=== PATIENT | male | born 1955 | race Two or more races ===

== ENCOUNTER 2020-03-25 15:46 | Observation (INO) | payer OTHER ==
[~2020-03-25] VITALS: Ht 172.7 cm; Wt 60.8 kg
[~2020-03-25 15:46] MED LIST: ATROPINE SULFATE 1 MG/ML VIAL ONE; FENTANYL CITRATE/PF 100MCG/2 ML INJ ONE; KETOROLAC TROMETHAMINE 30 MG/ML VIAL ONE; LIDOCAINE HCL 2% LOCAL INJ 5 ML SDV VIAL INJ ONE; MIDAZOLAM HCL 2 MG/2 ML VIAL ONE; NEOSTIGMINE 1 MG/ML 10ML VIAL ONE; ONDANSETRON HCL INJ 2MG/ML 2ML 2 MG/ML VIAL ONE; PROPOFOL IV EMULSION 10 MG/ML 20 ML VIAL ONE; ROCURONIUM BROMIDE 10 MG/ML 5ML VIAL IV ONE; SEVOFLURANE INHAL SOLN 250 ML PEN BTL ONE; SUCCINYLCHOLINE CHLORIDE 20 MG/ML 10ML VIAL ONE
[2020-03-25] MEDS ORDERED: SODIUM CHLORIDE 0.9% 1000ML 1,000 ML IV STA (16:21)
[2020-03-25] MEDS ORDERED: VANCOMYCIN 1GM/NS 250 ML 250 ML IV STA (16:21)
[2020-03-25] MEDS ORDERED: MORPHINE SULFATE INJ 4 MG/ML INJ 1ML IV PRN (16:30)
[2020-03-25] MEDS ORDERED: ONDANSETRON HCL INJ 2MG/ML 2ML 2 MG/ML VIAL IV PRN (16:30)
--- NOTE | 2020-03-25 16:36 | Emergency Department Note ---
History of Present Illnes History of Present Illness Chief Complaint: Eye, Ear, Nose, Throat, Dental History of Present Illness This is a 64 year old male arrived to the ED with complaints of nasal abscess. Patient was told to come to emergency department by Dr. Renteria to have it drained intraoperatively.. Chief Complaint Comment Patient in from home with complaints of a large abscess to his nose. Patient states that he saw Dr. Chang outpatient and was told to come here to the ER to be seen prior to having surgery with Dr. Chang to drain the abscess. Patient states that he was trimming his nose hair about 6 days ago and may have injured his nose and caused the infection. Objectively the patient's nose is red, warm and very tender to touch with swelling throughout but most obvious at the distal tip of the nose. Socially the patient denies smoking and drinking. Chief Complaint Comment Patient in from home with complaints of a large abscess to his nose. Patient states that he saw Dr. Chang outpatient and was told to come here to the ER to be seen prior to having surgery with Dr. Chang to drain the abscess. Patient states that he was trimming his nose hair about 6 days ago and may have injured his nose and caused the infection. Objectively the patient's nose is red, warm and very tender to touch with swelling throughout but most obvious at the distal tip of the nose. Socially the patient denies smoking and drinking. Historian: Patient Arrival Mode: Car Onset (how long ago): day(s) Radiation: Reports non-radiation Severity: mild Timing of current episode: constant Progression: worsening Chronicity: new Past Medical/Family History Physician Review I have reviewed the patient's past medical and family history. Any updates have been documented here. Past Medical History Recent Fever: No Clinical Suspicion of Infectio: Yes New/Unexplained Change in Ment: No Past Medical History: Diabetes, Hyperlipedemia Past Surgical History: None Social History Smoking Cessation: Never Smoker Counseling Performed: No Alcohol Use: None Any Illegal Drug Use: No Other Any Pre-Existing Lines (PICC,: No Review of Systems Review of Systems Constitutional: Reports no symptoms EENTM: Reports as per HPI Cardiovascular: Reports no symptoms Respiratory: Reports no symptoms Gastrointestinal: Reports no symptoms Genitourinary: Reports no symptoms Musculoskeletal: Reports no symptoms Integumentary: Reports no symptoms Neurological: Reports no symptoms Psychological: Reports no symptoms Endocrine: Reports no symptoms Hematological/Lymphatic: Reports no symptoms Physical Exam Related Data Allergies: Coded Allergies: No Known Allergies (Unverified , 03/25/20) Triage Vital Signs Vital Signs Date Time Temp Pulse Resp B/P (MAP) Pulse Ox O2 Delivery O2 Flow Rate FiO2 03/25/20 15:55 97.7 84 15 156/72 100 Room Air Vital signs reviewed: Yes Physical Exam CONSTITUTIONAL Constitutional: Present well-developed, Present well-nourished HENT HENT: Present normocephalic, Present atraumatic, Present oropharynx clear/moist, Present nose normal HENT L/R: Present left ext ear normal, Present right ext ear normal EYES Eyes: Reports PERRL, Reports conjunctivae normal NECK Neck: Present ROM normal PULMONARY Pulmonary: Present effort normal, Present breath sounds normal CARDIOVASCULAR Cardiovascular: Present regular rhythm, Present heart sounds normal, Present capillary refill normal, Present normal rate GASTROINTESTINAL Abdominal: Present soft, Present nontender, Present bowel sounds normal GENITOURINARY Genitourinary: Present exam deferred SKIN Skin: Present warm, Present dry MUSCULOSKELETAL Musculoskeletal: Present ROM normal NEUROLOGICAL Neurological: Present alert, Present oriented x 3, Present no gross motor or sensory deficits PSYCHOLOGICAL Psychological: Present mood/affect normal, Present judgement normal Results Laboratory Lab results reviewed: Yes Laboratory comments Laboratory Tests Test 03/25/20 16:50 White Blood Count 11.51 x10e3/uL (4.8-10.8) Red Blood Count 4.54 x10e6/uL (4.3-5.7) Hemoglobin 12.9 g/dL (14.0-18.0) Hematocrit 40.3 % (38.2-49.6) Mean Corpuscular Volume 88.8 fL (81-99) Mean Corpuscular Hemoglobin 28.4 pg (28-32) Mean Corpuscular Hemoglobin Concent 32.0 g/dL (31-35) Red Cell Distribution Width 13.1 % (11.7-14.4) Platelet Count 267 x10e3/uL (140-360) Neutrophils (%) (Auto) 81.9 % (38.7-80.0) Lymphocytes (%) (Auto) 10.3 % (18.0-39.1) Monocytes (%) (Auto) 6.7 % (4.4-11.3) Eosinophils (%) (Auto) 0.4 % (0.0-6.0) Basophils (%) (Auto) 0.3 % (0.0-1.0) Neutrophils # (Auto) 9.4 (2.1-6.9) Lymphocytes # (Auto) 1.2 (1.0-3.2) Monocytes # (Auto) 0.8 (0.2-0.8) Eosinophils # (Auto) 0.1 (0.0-0.4) Basophils # (Auto) 0.0 (0.0-0.1) Absolute Immature Granulocyte (auto 0.05 x10e3/uL (0-0.1) Prothrombin Time 14.0 seconds (11.9-14.5) Prothromb Time International Ratio 1.03 Sodium Level 142 mmol/L (136-145) Potassium Level 4.1 mmol/L (3.5-5.1) Chloride Level 103 mmol/L (98-107) Carbon Dioxide Level 28 mmol/L (22-29) Anion Gap 15.1 mmol/L (8-16) Blood Urea Nitrogen 25 mg/dL (7-26) Creatinine 0.74 mg/dL (0.72-1.25) Estimat Glomerular Filtration Rate > 60 ML/MIN (60-) BUN/Creatinine Ratio 34 (6-25) Glucose Level 111 mg/dL (74-118) Calcium Level 9.9 mg/dL (8.4-10.2) Total Bilirubin 0.5 mg/dL (0.2-1.2) Aspartate Amino Transf (AST/SGOT) 28 IU/L (5-34) Alanine Aminotransferase (ALT/SGPT) 33 IU/L (0-55) Alkaline Phosphatase 60 IU/L (40-150) Total Protein 7.4 g/dL (6.5-8.1) Albumin 4.3 g/dL (3.5-5.0) Globulin 3.1 g/dL (2.3-3.5) Albumin/Globulin Ratio 1.4 (0.8-2.0) Assessment & Plan Medical Decision Making MDM 64-year-old male arrives to the ED with trauma to his nostril resulting abscess. Patient to go to the OR by Dr. Penaloza for incision and drainage. First dose of antibiotics given the emergency department at request of Dr. Renteria further management and disposition planning to be done by ENT surgeon Dr. Penaloza Assessment & Plan Final Impression: (1) Nasal abscess Depart Disposition: ADMITTED Last Vital Signs Date Time Temp Pulse Resp B/P (MAP) Pulse Ox O2 Delivery O2 Flow Rate FiO2 03/25/20 15:55 97.7 84 15 156/72 100 Room Air JENNIFER CHENEY DO Mar 25, 2020 16:37
[2020-03-25 16:57] LABS: BASOPHILS % 0.3 % (0.0-1.0); EOSINOPHILS # (AUTO) 0.1 (0.0-0.4); EOSINOPHILS % 0.4 % (0.0-6.0); HEMATOCRIT 40.3 % (38.2-49.6); HEMOGLOBIN 12.9 g/dL (14.0-18.0); LYMPHOCYTES # (AUTO) 1.2 (1.0-3.2); LYMPHOCYTES % 10.3 % (18.0-39.1); MEAN CORPUSCULAR HEMOGLOBIN 28.4 pg (28-32); MEAN CORPUSCULAR VOLUME 88.8 fL (81-99); MONOCYTES # (AUTO) 0.8 (0.2-0.8); MONOCYTES % 6.7 % (4.4-11.3); NEUTROPHILS # (AUTO) 9.4 (2.1-6.9); NEUTROPHILS % 81.9 % (38.7-80.0); PLATELET COUNT 267 x10e3/uL (140-360); RED BLOOD COUNT 4.54 x10e6/uL (4.3-5.7); RED CELL DISTRIBUTION WIDTH 13.1 % (11.7-14.4)
[2020-03-25 17:05] LABS: INR 1.03
[2020-03-25 17:12] LABS: ALANINE AMINOTRANSFERASE 33 IU/L (0-55); ALBUMIN 4.3 g/dL (3.5-5.0); ALBUMIN/GLOBULIN RATIO 1.4 (0.8-2.0); ALKALINE PHOSPHATASE 60 IU/L (40-150); ANION GAP 15.1 mmol/L (8-16); BLOOD UREA NITROGEN 25 mg/dL (7-26); BUN/CREATININE RATIO 34 (6-25); CALCIUM 9.9 mg/dL (8.4-10.2); CARBON DIOXIDE 28 mmol/L (22-29); CHLORIDE 103 mmol/L (98-107); CREATININE, SERUM 0.74 mg/dL (0.72-1.25); EST GLOMERULAR FILTRATION RATE > 60 ML/MIN (60-); GLUCOSE 111 mg/dL (74-118); POTASSIUM 4.1 mmol/L (3.5-5.1); SODIUM 142 mmol/L (136-145)
--- NOTE | 2020-03-25 18:16 | NUR ---
SPOKE WITH DR. JULIA KWAN SWAB; NASAL ABSCESS
--- NOTE | 2020-03-25 18:58 | NUR ---
OR TEAM HERE TO P-UP PT
[2020-03-25] MEDS ORDERED: OXYMETAZOLINE HCL 0.05% NAS 1 SPRAY BTL ONE (19:44)
[2020-03-25] MEDS ORDERED: LIDOCAINE 1% W/EPINEPHRINE 20 ML VIAL ONE (19:44)
[2020-03-25] MEDS ORDERED: EPINEPHRINE HCL 1:1000 1ML 1 MG/ML AMP ONE (19:44)
--- NOTE | 2020-03-25 20:02 | History and Physical ---
EMERGENCY ROOM CONSULTATION/HISTORY AND PHYSICAL CHIEF COMPLAINT: Nasal infection. HISTORY OF PRESENT ILLNESS: The patient is a 64-year-old male with six days history of worsening nasal problems manifesting as severe painful nasal tip swelling (worse on the right) with mild epistaxis and nasal congestion. He denies any fever. He is a nonsmoker. The patient uses Flonase nasal spray on average about once per week for the past two years. He has had no previous sinus or nasal surgery. He has been refractory to Zithromax. He has diabetes mellitus. He takes Plavix. Patient refused incision and drainage of nasal abcess in-office under local anesthesia, so he presented to the [facility] emergency room for further management. PAST MEDICAL HISTORY: Diabetes mellitus and hypercholesterolemia. PAST SURGICAL HISTORY: Bilateral conjunctival surgery. ALLERGIES: HE HAS NO KNOWN DRUG ALLERGIES. MEDICATIONS: Aspirin 81 mg, metformin, Plavix, and rosuvastatin. SOCIAL HISTORY: He is a nonsmoker and nondrinker. PHYSICAL EXAMINATION: GENERAL: The patient is a thin male, appearing of stated age, in no apparent distress. HEENT: The ears are normal bilaterally. Nasal exam reveals diffuse erythema and edema involving the nasal tip. There is intranasal anterior nasal vestibular swelling on the right side, consistent with fluid collection suggestive of abscess. Neck is supple with full range of motion. There is no palpable lymphadenopathy. Oral cavity and oropharynx are clear. ASSESSMENT: Nasal abscess and cellulitis. PLAN: Incision and drainage of nasal tip abscess intraoperatively under general anesthesia with cultures and postoperative oral antibiotics. MD OANH Baig/GEORGETTE /[id number] ADOLPH
[2020-03-25 21:00] VITALS: BP 152/80
--- NOTE | 2020-03-26 02:28 | Operative Report ---
DATE OF PROCEDURE: 03/25/2020 SURGEON: Salo Chang MD PREOPERATIVE DIAGNOSIS: Nasal tip abscess. POSTOPERATIVE DIAGNOSIS: Nasal tip abscess. PROCEDURE: Incision and drainage of nasal tip abscess. ANESTHESIA: General endotracheal tube anesthesia. ESTIMATED BLOOD LOSS: Less than 1 mL. FINDINGS: Approximately 4-5 mL of purulence expressed from the nasal tip via the right nasal vestibule. COMPLICATIONS: None. INDICATIONS: The patient is a 64-year-old male with 6 days history of worsening nasal problems, manifesting as severe painful nasal tip swelling, worse on the right with mild epistaxis and mild nasal congestion. He denies fever. He is a nonsmoker. He has had no previous sinus or nasal surgery. He was refractory to Zithromax. On examination, he has significant erythema, swelling and tenderness of the nasal tip, slightly worse on the right than the left. There is a visible swelling in the right nasal vestibule consistent with fluid collection suggestive of abscess. The patient refused in-office incision and drainage, so he is scheduled for incision and drainage of nasal tip abscess via the right nasal vestibule intraoperatively under general anesthesia. Risks and complications of the procedure were thoroughly discussed with the patient and include infection, bleeding, scarring, failure to improve, recurrence of infection and purulence, need for additional operations, damage to the nasal cartilaginous structures resulting in poor external cosmetic appearance of the nose, inability to smell or taste, chronic pain, need for blood transfusions, damage to surrounding nerves, blood vessels, and muscles. He fully understands and gives consent. DESCRIPTION OF PROCEDURE: The patient was taken to the operating room and placed supine on the operating table where general anesthesia was achieved through orotracheal intubation. Eyes were taped. The head and body were draped. Following this, because the COVID-19 testing was unable to be performed in the emergency room, nasopharyngeal swabbing for COVID-19 testing was performed through the left nasal cavity. Following this, cottonoid pledgets soaked with Afrin were then inserted into the nose bilaterally and then were removed. Examination on the left side with the rigid 0-degree nasal endoscope revealed no evidence of purulence or fluid collection in the left nasal cavity. Examination on the right side found significant fluid collection in the nasal vestibule resulting in swelling that filled approximately half of the caliber of the right nostril. Injection with 0.5 mL of 1% lidocaine with 1 to 100,000 epinephrine was injected into the skin of the right nasal vestibule overlying the fluid collection. An approximately 1-1.5 cm incision was then made in the right nasal vestibule with an 11-blade releasing copious amounts of thick purulence. This was cultured for aerobic, AFB, and fungal cultures and sent to microbiology. Further exploration with blunt dissection through the 1 to 1.5 cm incision expressed further purulence and this was thoroughly expressed with compressing the nasal tip structures and soft tissues. Following this, irrigation was then performed. The patient was then awakened in the operating room. Inspection with the 0-degree rigid nasal endoscope in both nasal cavities revealed a deviated septum and mild diffuse intranasal mucosal inflammation, but otherwise no evidence of purulence/fluid collection or polyps or tumors were seen. Following this, the patient was awakened in the operating room, extubated, and taken to the recovery room in good condition. Salo Chnag MD JKY/MODL /[id number] MTDLuis
== END 2020-03-25 21:20 | disposition home or self-care (01) ==
LOC: ER 16:15 → OR 16:16 → ERHOLD 16:21 → UNDOADMOB 16:21 → PACU V 16:25 → UNDODISOB 03-28 06:56
PROVIDERS: ADMIT Otolaryngology; ATTEND Otolaryngology
DX: J32.8 Other chronic sinusitis (principal); J34.0 Abscess, furuncle and carbuncle of nose; E11.9 Type 2 diabetes mellitus without complications; E78.5 Hyperlipidemia, unspecified; Z11.59 Encounter for screening for other viral diseases; B95.62 Methicillin resistant Staphylococcus aureus infection as the cause of diseases classified elsewhere; Z79.84 Long term (current) use of oral hypoglycemic drugs
CPT/HCPCS: 30000; 36415; 80053; 82948; 85025; 85610; 87071; 87102; 87116; 87186; 87205; 87206 ×2; 99284; G0378; J0171; J0330; J0461; J1885; J2001; J2270; J2405; J2704; J2710; J3370; J7030; U0002; J2250; J3010